=== PATIENT | male | born 1990 | race Caucasian/White ===

== ENCOUNTER 2018-03-01 11:31 | Emergency (ER) | payer SELFPAY ==
[~2018-03-01] VITALS: Ht 182.9 cm; Wt 77.1 kg
[2018-03-01] MEDS ORDERED: LIDOCAINE700 M1 TP (12:08)
[2018-03-01] MEDS ORDERED: ROBAXIN500 MG PO (12:08)
[2018-03-01] MEDS ORDERED: TYLENOL EXTRA500 MG ORAL (12:08)
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
[2018-03-01] MEDS ORDERED: Methocarbamol 750mg tab ORAL ONE (12:15)
[2018-03-01 12:17] VITALS: BP 118/79
[2018-03-01 12:23] VITALS: BP 118/79
[2018-03-01 12:25] VITALS: BP 118/79
== END 2018-03-01 12:46 | disposition home or self-care (01) ==
LOC: EMR 12:20
DX: M54.2 Cervicalgia (principal); M54.9 Dorsalgia, unspecified; V43.52XA Car driver injured in collision with other type car in traffic accident, initial encounter; Y92.410 Unspecified street and highway as the place of occurrence of the external cause
CPT/HCPCS: 99283